=== PATIENT | female | born 1985 | race Two or more races ===

== ENCOUNTER 2016-10-31 10:37 | Day surgery (SDC) | payer SELFPAY ==
[~2016-10-31] VITALS: Ht 190.5 cm; Wt 133.6 kg
[~2016-10-31 10:37] MED LIST: Motrin PO
[2016-10-31 11:20] LABS: HEMATOCRIT 35.7 % (36.0-46.0); MCH 27.4 PG (29.0-34.0); MCHC 34.7 G/DL (30.0-36.0); MCV 78.8 FL (83-99); MEAN PLAT.VOLUME 11.4 uM^3 (9.5-12.4); PLATELET COUNT 187 K/uL (156-360); RBC DIS.WIDTH-CV 15.9 % (11.8-14.6); RED BLOOD COUNT 4.53 M/uL (3.80-5.20); WHITE BLOOD COUNT 13.1 K/uL (4.1-10.2)
[2016-10-31 11:34] LABS: CHLORIDE 106 mEq/L (99-109); POTASSIUM 4.1 mEq/L (3.7-5.4); SODIUM 133 mEq/L (136-147)
[2016-10-31 11:36] LABS: GLUCOSE 99 mg/dL (70-99)
[2016-10-31 11:37] LABS: ANION GAP 10 MEQ/L (2-14)
[2016-10-31 11:38] LABS: TOTAL BILIRUBIN 0.7 mg/dL (0.0-1.0)
[2016-10-31 11:39] LABS: ALKALINE PHOSPHATASE 65 IU/L (3-129)
[2016-10-31 11:40] LABS: GFR ESTIMATE (CALCULATED) > 59 mL/min/
[2016-10-31 11:41] LABS: UREA NITROGEN (BUN) 5 mg/dL (9-23)
[2016-10-31 11:43] LABS: LIPASE 5 U/L (1.0-51.0)
[2016-10-31 12:15] LABS: QUANTITATIVE HCG 34870.4 MIU/ML
[2016-10-31 12:29] LABS: ADD MIUA? YES; BILIRUBIN NEGATIVE; BLOOD NEGATIVE; COLOR YELLOW ((YELLOW)); GLUCOSE (STRIP) NEGATIVE; KETONES TRACE; LEUKOCYTES TRACE; NITRITE NEGATIVE; PROTEIN (STRIP) NEGATIVE; SPECIFIC GRAVITY 1.008 (1.000-1.030); UROBILINOGEN 0.2 MG/DL (0.2-1.0)
[2016-10-31 12:49] LABS: BACTERIA RARE; CASTS NONE SEEN /LPF; CRYSTALS NONE SEEN; EPITHELIAL CELLS 1+; RED BLOOD CELLS 0-5 /HPF (0-5); WHITE BLOOD CELLS 0-5 /HPF (0-5)
[2016-10-31 12:50] LABS: MUCUS 1+
[2016-10-31] MEDS ORDERED: PRENATAL VITAM1 EA11 PO (17:16)
[2016-10-31 20:49] VITALS: BP 152/72
[2016-11-01] VITALS: BP 142/80
[2016-11-01 04:00] VITALS: BP 144/73
[2016-11-01 07:26] VITALS: BP 137/80
[2016-11-01] MEDS ORDERED: ENDOCET 5-3251 EACH PO (08:40)
== END 2016-11-01 11:09 | disposition home or self-care (01) ==
LOC: RME 10:37 → EME 10:37 → SDC 18:17 → RME 18:17 → 2SOUTH 19:46 → 2EAST 20:47
PROVIDERS: Physician Assistant
PROC: 0FT44ZZ Resection of Gallbladder, Percutaneous Endoscopic Approach (ICD-10-PCS; principal; 2016-10-31)
DX: K80.10 Calculus of gallbladder with chronic cholecystitis without obstruction (principal); O99.89 Other specified diseases and conditions complicating pregnancy, childbirth and the puerperium; F17.200 Nicotine dependence, unspecified, uncomplicated; Z3A.11 11 weeks gestation of pregnancy
CPT/HCPCS: 76705; 76801; 80053; 81003; 83690; 84702; 85027; 88304; 99281; 99285; G0378; J0330; J1170; J1335; J1650; J2405; J2765; J3010; J7030; J7050; J7120

== ENCOUNTER 2017-01-02 20:27 | Emergency (ER) | payer OTHER ==
[~2017-01-02] VITALS: Ht 188 cm; Wt 133.8 kg
[~2017-01-02 20:27] MED LIST changes: +ENDOCET 5-3251 EACH PO; +PRENATAL VITAM1 EA11 PO
[2017-01-02 21:00] LABS: HEMATOCRIT 35.3 % (36.0-46.0); MCHC 33.1 G/DL (30.0-36.0); MCV 81.3 FL (83-99); MEAN PLAT.VOLUME 11.1 uM^3 (9.5-12.4); PLATELET COUNT 184 K/uL (156-360); RBC DIS.WIDTH-CV 15.2 % (11.8-14.6); RBC DIS.WIDTH-SD 44.3 % (39-53); RED BLOOD COUNT 4.34 M/uL (3.80-5.20)
[2017-01-02 21:07] LABS: CHLORIDE 109 mEq/L (99-109); POTASSIUM 3.2 mEq/L (3.7-5.4); SODIUM 137 mEq/L (136-147)
[2017-01-02 21:09] LABS: GLUCOSE 107 mg/dL (70-99)
[2017-01-02 21:10] LABS: ANION GAP 8 MEQ/L (2-14)
[2017-01-02 21:11] LABS: TOTAL BILIRUBIN 0.2 mg/dL (0.0-1.0)
[2017-01-02 21:12] LABS: ALKALINE PHOSPHATASE 67 IU/L (3-129)
[2017-01-02 21:13] LABS: GFR ESTIMATE (CALCULATED) > 59 mL/min/
[2017-01-02 21:14] LABS: UREA NITROGEN (BUN) 6 mg/dL (9-23)
[2017-01-02 21:16] LABS: LIPASE 8 U/L (1.0-51.0)
[2017-01-02 21:22] LABS: ADD MIUA? YES; BILIRUBIN NEGATIVE; BLOOD NEGATIVE; COLOR YELLOW ((YELLOW)); GLUCOSE (STRIP) NEGATIVE; KETONES 5; LEUKOCYTES TRACE; NITRITE NEGATIVE; PROTEIN (STRIP) 30; SPECIFIC GRAVITY 1.021 (1.000-1.030); UROBILINOGEN 0.2 MG/DL (0.2-1.0)
[2017-01-02 21:39] LABS: EPITHELIAL CELLS 2+ /HPF; RED BLOOD CELLS 0-5 /HPF (0-5); WHITE BLOOD CELLS 0-5 /HPF (0-5)
[2017-01-02 21:40] LABS: BACTERIA 2+ /HPF; MUCUS 2+ /LPF; UCUL ADDED? NO
[2017-01-02 23:05] VITALS: BP 151/76
== END 2017-01-02 23:18 | disposition home or self-care (01) ==
LOC: EME 20:27
PROVIDERS: Nurse Practitioner Family
DX: O26.892 Other specified pregnancy related conditions, second trimester (principal); R10.11 Right upper quadrant pain; O99.332 Smoking (tobacco) complicating pregnancy, second trimester; F17.200 Nicotine dependence, unspecified, uncomplicated
CPT/HCPCS: 76705; 80053; 81003; 83690; 85027; 99281; 99283

== ENCOUNTER 2017-05-24 07:59 | Inpatient (IN) | payer OTHER ==
[2017-05-24] VITALS (23 sets, daily range): BP systolic 110–159; BP diastolic 54–85
[~2017-05-24] VITALS: Ht 190.5 cm; Wt 135.0 kg
[2017-05-24 09:37] LABS: ADD MIUA? YES; BILIRUBIN NEGATIVE; BLOOD NEGATIVE; COLOR YELLOW ((YELLOW)); GLUCOSE (STRIP) NEGATIVE; KETONES NEGATIVE; LEUKOCYTES TRACE; NITRITE NEGATIVE; PROTEIN (STRIP) NEGATIVE; SPECIFIC GRAVITY 1.023 (1.000-1.030); UROBILINOGEN 0.2 MG/DL (0.2-1.0)
[2017-05-24 09:55] LABS: RED BLOOD CELLS 0-5 /HPF (0-5); WHITE BLOOD CELLS 0-5 /HPF (0-5)
[2017-05-24 09:56] LABS: BACTERIA 1+ /HPF; CALCIUM OXALATE CRYSTALS 1+ /HPF; CRYSTALS PRESENT; EPITHELIAL CELLS 3+ /HPF; MUCUS 2+ /LPF; UCUL ADDED? NO
[2017-05-24 10:05] LABS: EOSINOPHIL (%) 2.1 % (0-5); EOSINOPHIL COUNT 0.2 K/uL (0-0.3); HEMATOCRIT 34.4 % (36.0-46.0); IMMATURE GRANULOCYTE (%) 1.3 % (0.0-0.7); IMMATURE GRANULOCYTE COUNT 0.1 K/uL; INSTRUMENT ABS NEUTROPHIL CT 6.9 K/uL; LYMPHOCYTE COUNT 1.7 K/uL (1.0-2.8); MCH 28.4 PG (29.0-34.0); MCHC 33.7 G/DL (30.0-36.0); MCV 84.3 FL (83-99); MEAN PLAT.VOLUME 11.7 uM^3 (9.5-12.4); MONOCYTE (%) 7.6 % (3-12); MONOCYTE COUNT 0.7 K/uL (0-0.8); NEUTROPHIL (%) 71.5 % (45-76); NEUTROPHIL COUNT 6.9 K/uL (1.8-6.4); PLATELET COUNT 166 K/uL (156-360); RBC DIS.WIDTH-CV 14.8 % (11.8-14.6); RED BLOOD COUNT 4.08 M/uL (3.80-5.20); WHITE BLOOD COUNT 9.7 K/uL (4.1-10.2)
[2017-05-24 10:38] LABS: AMPHETAMINE NEGATIVE (500 ng/mL); BARBITURATES NEGATIVE (200 ng/mL); BENZODIAZEPINES NEGATIVE (150 ng/mL); COCAINE NEGATIVE (150 ng/mL); INTERNAL CONTROLS VALID? YES; METHADONE NEGATIVE (200 ng/mL); METHAMPHETAMINE NEGATIVE (500 ng/mL); OPIATES (MORPHINE) NEGATIVE (100 ng/mL); OXYCODONE NEGATIVE (100 ng/mL); PHENCYCLIDINE NEGATIVE (25 ng/mL); PROPOXYPHENE NEGATIVE (300 ng/mL); THC CANNABINOIDS NEGATIVE (50 ng/mL); TRICYCLIC ANTIDEPRESSANTS NEGATIVE (300 ng/mL)
[2017-05-24 11:18] LABS: Estimated Average Glucose 103 mg/dL (70-123); HEMOGLOBIN A1c (GLYCOHEMOGLOB) 5.2 % HGB (Below 5.7)
[2017-05-25 00:25] VITALS: BP 123/57
[2017-05-25 01:14] VITALS: BP 105/50
[2017-05-25 07:26] LABS: EOSINOPHIL (%) 1.1 % (0-5); EOSINOPHIL COUNT 0.1 K/uL (0-0.3); HEMATOCRIT 31.3 % (36.0-46.0); IMMATURE GRANULOCYTE (%) 0.8 % (0.0-0.7); IMMATURE GRANULOCYTE COUNT 0.1 K/uL; INSTRUMENT ABS NEUTROPHIL CT 9.2 K/uL; LYMPHOCYTE COUNT 2.1 K/uL (1.0-2.8); MCH 28.4 PG (29.0-34.0); MCHC 34.2 G/DL (30.0-36.0); MEAN PLAT.VOLUME 11.4 uM^3 (9.5-12.4); MONOCYTE COUNT 0.9 K/uL (0-0.8); NEUTROPHIL (%) 73.9 % (45-76); NEUTROPHIL COUNT 9.2 K/uL (1.8-6.4); PLATELET COUNT 169 K/uL (156-360); RBC DIS.WIDTH-CV 14.6 % (11.8-14.6); RED BLOOD COUNT 3.77 M/uL (3.80-5.20); WHITE BLOOD COUNT 12.5 K/uL (4.1-10.2)
[2017-05-25 07:46] VITALS: BP 115/59
[2017-05-25 14:58] VITALS: BP 119/59
[2017-05-25 22:35] VITALS: BP 113/58
[2017-05-26 07:38] VITALS: BP 125/57
[2017-05-26] MEDS ORDERED: IBUPROFEN800 MG PO (08:09)
[2017-05-26 15:11] VITALS: BP 131/65
== END 2017-05-26 15:53 | disposition home or self-care (01) | DRG 775 ==
LOC: LDRP-OP → 2WEST 08:00 → LDRP-OP 17:52 → 2WEST 22:24 → LDRP-OP 06-20 16:06
PROVIDERS: Advanced Practice Midwife
PROC: 10E0XZZ Delivery of Products of Conception, External Approach (ICD-10-PCS; principal; 2017-05-24)
PROC: 3E0R3CZ (ICD-10-PCS; principal; 2017-05-24)
PROC: 0U7C7ZZ Dilation of Cervix, Via Natural or Artificial Opening (ICD-10-PCS; principal; 2017-05-24)
PROC: 00HU33Z Insertion of Infusion Device into Spinal Canal, Percutaneous Approach (ICD-10-PCS; principal; 2017-05-24)
DX: O48.0 Post-term pregnancy (principal); O99.214 Obesity complicating childbirth; E66.9 Obesity, unspecified; Z68.30 Body mass index [BMI] 30.0-30.9, adult; O99.334 Smoking (tobacco) complicating childbirth; O99.354 Diseases of the nervous system complicating childbirth; F17.200 Nicotine dependence, unspecified, uncomplicated; O77.0 Labor and delivery complicated by meconium in amniotic fluid; Z3A.40 40 weeks gestation of pregnancy; Z37.0 Single live birth
CPT/HCPCS: 80306 90; 81003; 83036; 85025; 87070; 87075; 87205; C1755; J3010; J7120

== ENCOUNTER 2018-03-23 08:15 | Emergency (ER) | payer OTHER ==
[~2018-03-23] VITALS: Ht 190.5 cm; Wt 130.7 kg
[~2018-03-23 08:15] MED LIST changes: +IBUPROFEN800 MG PO
[2018-03-23 08:54] LABS: BASOPHIL (%) 0.3 % (0-1); EOSINOPHIL (%) 1.4 % (0-5); EOSINOPHIL COUNT 0.1 K/uL (0-0.3); HEMATOCRIT 32.3 % (36.0-46.0); HEMOGLOBIN 10.9 G/DL (11.9-15.5); IMMATURE GRANULOCYTE (%) 1.3 % (0.0-0.7); LYMPHOCYTE (%) 8.4 % (15-42); LYMPHOCYTE COUNT 0.8 K/uL (1.0-2.8); MCH 27.8 PG (29.0-34.0); MCHC 33.7 G/DL (30.0-36.0); MCV 82.4 FL (83-99); MONOCYTE (%) 7.5 % (3-12); MONOCYTE COUNT 0.7 K/uL (0-0.8); NEUTROPHIL (%) 81.1 % (45-76); NEUTROPHIL COUNT 7.6 K/uL (1.8-6.4); PLATELET COUNT 163 K/uL (156-360); RBC DIS.WIDTH-CV 15.3 % (11.8-14.6); RBC DIS.WIDTH-SD 46.2 % (39-53); RED BLOOD COUNT 3.92 M/uL (3.80-5.20); WHITE BLOOD COUNT 9.4 K/uL (4.1-10.2)
[2018-03-23 09:05] LABS: CHLORIDE 107 mEq/L (99-109); POTASSIUM 3.6 mEq/L (3.7-5.4); SODIUM 138 mEq/L (136-147)
[2018-03-23 09:06] LABS: GLUCOSE 91 mg/dL (70-99)
[2018-03-23 09:10] LABS: CREATININE 0.5 mg/dL (0.6-1.3); GFR ESTIMATE (CALCULATED) > 59 mL/min/
[2018-03-23 09:11] LABS: UREA NITROGEN (BUN) 3 mg/dL (9-23)
[2018-03-23] MEDS ORDERED: ZITHROMAX Z-PA250 MG PO (10:00)
[2018-03-23] MEDS ORDERED: PROVENTIL HFA6.7 GM IH (10:00)
[2018-03-23 11:29] VITALS: BP 113/76
== END 2018-03-23 11:31 | disposition home or self-care (01) ==
LOC: EME 08:15
PROVIDERS: Emergency Medicine
DX: O99.512 Diseases of the respiratory system complicating pregnancy, second trimester (principal); J20.9 Acute bronchitis, unspecified; Z3A.24 24 weeks gestation of pregnancy; O99.332 Smoking (tobacco) complicating pregnancy, second trimester; F17.200 Nicotine dependence, unspecified, uncomplicated; Z88.0 Allergy status to penicillin
CPT/HCPCS: 71045; 80048; 85025; 93005; 94640